=== PATIENT | male | born 1950 | race Caucasian/White ===

== ENCOUNTER 2017-01-07 02:12 | Emergency (ER) | payer MEDICARE ==
[2017-01-07 03:13] LABS: Urine Bacteria 1+ (Absent); Urine Bilirubin Negative (Negative); Urine Glucose Negative (Negative); Urine Nitrite Negative (Negative)
[2017-01-07 03:21] LABS: Add Diff/Slide Review? Slide Review Added; Comments Flag Yes; Hematocrit 39 % (42-52); Hemoglobin 13.1 g/dl (14.0-18.0); Mean Corpuscular HGB Conc 34 g/dl (31-36); Mean Corpuscular Hemoglobin 30 pg (27-31); Mean Corpuscular Volume 90 fL (80-94); Mean Platelet Volume 8 um3 (7.4-10.4); Red Blood Count 4.32 10^6/ul (4.0-5.4); Red Cell Distribution Width 14 % (10.5-15)
[2017-01-07 03:35] LABS: Albumin 3.9 g/dL (3.2-5.2); BUN/Creatinine Ratio 13.5 (8-20); Calcium 9.2 mg/dL (8.6-10.3); EGFR African American 109.3 (>60); Globulin 2.7 g/dL (2-4); Potassium 3.6 mmol/L (3.5-5.0); Total Bilirubin 0.6 mg/dL (0.2-1.0); Total Protein 6.6 g/dL (6.4-8.9)
--- NOTE | 2017-01-07 03:47 | ED ---
Tremaine Barba Thomas, scribed for Manfred Kelly on 01/07/17 at 0237 . GI/ HPI - HPI Summary HPI Summary: The pt is a 66 y/o M presenting to the ED c/o inability void since today at 00: 30. He reports prior episodes of inability to void. He attempted to self- catheterize and only found blood. He had been taught previously how to self- catheterize, although this was the first time that he has attempted. Pt denies any pain in the ED. He denies a Hx of prostate CA, kidney failure. He is not on any blood thinners. He takes Flomax. PMHx: BPH, inguinal hernia. - History of Current Complaint Chief Complaint: EDUrogenitalProblems Time Seen by Provider: 01/07/17 02:30 Stated Complaint: UNABLE TO URINATE//DR SENT Hx Obtained From: Patient Onset/Duration: Started Hours Ago - 00:30 today, Still Present Timing: Constant Pain Intensity: 0 Associated Signs and Symptoms: Positive: Other: - POS: inability to void; NEG: any pain Aggravating Factor(s): Nothing Alleviating Factor(s): Nothing - Allergy/Home Medications Allergies/Adverse Reactions: Allergies Allergy/AdvReac Type Severity Reaction Status Date / Time No Known Allergies Allergy Verified 01/07/17 02:16 PMH/Surg Hx/FS Hx/Imm Hx Previously Healthy: No GI History: Reports: Other GI Disorders - Hx inguinal hernia History: Reports: Hx Benign Prostatic Hyperplasia - Surgical History Surgery Procedure, Year, and Place: HERNIA REPAIR X 2 "30 YRS AGO". BACK SURGERY "40 YRS AGO" Infectious Disease History: No Infectious Disease History: Denies: Traveled Outside the [place] in Last 30 Days - Family History Known Family History: Positive: Other - When asked, the patient reponds "none" - Social History Alcohol Use: None Substance Use Type: Reports: None Smoking Status (MU): Never Smoked Tobacco Review of Systems Negative: Fever Negative: Abdominal Pain Positive: other - POS: inability to void All Other Systems Reviewed And Are Negative: Yes Physical Exam Triage Information Reviewed: Yes Vital Signs On Initial Exam: Initial Vitals Temp Pulse Resp BP Pulse Ox 96.6 F 110 16 139/87 99 01/07/17 02:01/07/17 02:01/07/17 02:01/07/17 02:17 01/07/17 02:17 Vital Signs Reviewed: Yes Appearance: Positive: Well-Appearing, No Pain Distress Skin: Positive: Warm, Skin Color Reflects Adequate Perfusion, Dry Head/Face: Positive: Normal Head/Face Inspection Eyes: Positive: EOMI, MIGUEL ENT: Positive: Normal ENT inspection Neck: Positive: Supple, Nontender Respiratory/Lung Sounds: Positive: Clear to Auscultation, Breath Sounds Present Cardiovascular: Positive: RRR, Pulses are Symmetrical in both Upper and Lower Extremities Abdomen Description: Positive: Nontender, Soft, Distended Bowel Sounds: Positive: Present Musculoskeletal: Positive: Normal, Strength/ROM Intact Neurological: Positive: Normal, Sensory/Motor Intact, Alert, Oriented to Person Place, Time Diagnostics - Vital Signs Vital Signs Temp Pulse Resp BP Pulse Ox 01/07/17 02:17 96.6 F 110 16 139/87 99 - Laboratory Result Diagrams: 01/07/17 03:10 01/07/17 03:10 Lab Statement: Any lab studies that have been ordered have been reviewed, and results considered in the medical decision making process. GIGU Course/Dx - Course Assessment/Plan: The patient presents with urinary retention without abdominal pain. He attempted to self-catheterized. He was catheterized in the ED. He is diagnosed with urinary retention. He will be discharged. - Diagnoses Provider Diagnoses: Urinary retention Discharge - Discharge Plan Condition: Stable Disposition: HOME Patient Education Materials: Urinary Retention in Men (ED) The documentation as recorded by the Tremaine sahu Thomas accurately reflects the service I personally performed and the decisions made by Robin farr Emmanuel.
[2017-01-07 04:00] VITALS: BP 138/86
== END 2017-01-07 04:00 | disposition home or self-care (01) ==
LOC: ED 02:12
DX: R33.9 Retention of urine, unspecified (principal)
CPT/HCPCS: 36415; 80053; 81003; 81015; 85025; 87086; 99282

== ENCOUNTER → 2017-01-07 05:07 | Emergency (ER) | payer MEDICARE ==
--- NOTE | 2017-01-07 05:29 | ED ---
Tremaine Barba Thomas, scribed for Manfred Klely on 01/07/17 at 0522 . GI/ HPI - HPI Summary HPI Summary: The patient is a 66 y/o M who returns to [facility] ED in order to have his Mccabe catheter removed. He was a patient here earlier in the night and diagnosed with urinary retention for which a Mccabe catheter was placed. The patient reports that in the past his Mccabe catheters have been removed shortly after they are placed, and he tells us that he wants his Mccabe catheter removed. He has an appointment with Dr. Perez in the morning at 08:00, which he states that he will attend. - History of Current Complaint Chief Complaint: EDUrogenitalProblems Time Seen by Provider: 01/07/17 05:15 Stated Complaint: CATH ISSUE Hx Obtained From: Patient Onset/Duration: Started Hours Ago - s/p visit to the ED, Still Present Timing: Constant Current Severity: None Pain Intensity: 0 Associated Signs and Symptoms: Positive: Negative Aggravating Factor(s): Nothing Alleviating Factor(s): Nothing - Allergy/Home Medications Allergies/Adverse Reactions: Allergies Allergy/AdvReac Type Severity Reaction Status Date / Time No Known Allergies Allergy Verified 01/07/17 02:16 PMH/Surg Hx/FS Hx/Imm Hx Previously Healthy: No GI History: Reports: Other GI Disorders - Hx inguinal hernia History: Reports: Hx Benign Prostatic Hyperplasia - Surgical History Surgery Procedure, Year, and Place: HERNIA REPAIR X 2 "30 YRS AGO". BACK SURGERY "40 YRS AGO" Infectious Disease History: No Infectious Disease History: Denies: Traveled Outside the [place] in Last 30 Days - Family History Known Family History: Positive: Other - When asked, the patient reponds "none" - Social History Alcohol Use: None Substance Use Type: Reports: None Smoking Status (MU): Never Smoked Tobacco Review of Systems Negative: Fever Genitourinary: Other - POS: desires Mccabe catheter to be removed All Other Systems Reviewed And Are Negative: Yes Physical Exam Triage Information Reviewed: Yes Vital Signs On Initial Exam: Initial Vitals Temp Pulse Resp BP Pulse Ox 98.8 F 102 18 108/80 97 01/07/17 05:12 01/07/17 05:12 01/07/17 05:12 01/07/17 05:12 08/30/17 05:12 Vital Signs Reviewed: Yes Appearance: Positive: Well-Appearing, No Pain Distress Skin: Positive: Warm, Skin Color Reflects Adequate Perfusion, Dry Head/Face: Positive: Normal Head/Face Inspection Eyes: Positive: EOMI, MIGUEL ENT: Positive: Normal ENT inspection Neck: Positive: Supple, Nontender Respiratory/Lung Sounds: Positive: Clear to Auscultation, Breath Sounds Present Cardiovascular: Positive: RRR, Pulses are Symmetrical in both Upper and Lower Extremities Abdomen Description: Positive: Nontender, Soft Male Genital Exam: Positive: other - There is a mccabe catheter Musculoskeletal: Positive: Normal, Strength/ROM Intact Neurological: Positive: Normal, Sensory/Motor Intact, Alert, Oriented to Person Place, Time Diagnostics - Vital Signs Vital Signs Temp Pulse Resp BP Pulse Ox 01/07/17 05:12 98.8 F 102 18 108/80 97 - Laboratory Lab Statement: Any lab studies that have been ordered have been reviewed, and results considered in the medical decision making process. GIGU Course/Dx - Course Assessment/Plan: The patient returns to the ED for removal of the Mccabe Catheter. He wants the catheter to be removed. We removed the catheter. He was diagnosed with Mccabe catheter problems. He has an appointment with Dr. Perez in the AM at 08:00, where he will follow up. - Diagnoses Provider Diagnoses: Mccabe catheter problem Discharge - Discharge Plan Condition: Stable Disposition: HOME Patient Education Materials: Mccabe Catheter Placement and Care (ED) Referrals: Yashira Cardenas MD [Primary Care Provider] - Additional Instructions: Go to your appointment at 08:00 with your urologist. The documentation as recorded by the Tremaine sahu Thomas accurately reflects the service I personally performed and the decisions made by Robin farr Emmanuel.
[2017-01-07 05:45] VITALS: BP 112/76
== END | disposition home or self-care (01) ==
LOC: ED 05:07
DX: Z46.6 Encounter for fitting and adjustment of urinary device (principal)
CPT/HCPCS: 99281

== ENCOUNTER → 2017-01-31 05:11 | Emergency (ER) | payer MEDICARE ==
--- NOTE | 2017-01-31 06:48 | ED ---
Tim Barba Rebecca, scribed for Manfred Kelly on 01/31/17 at 0532 . GI/ HPI - HPI Summary HPI Summary: Pt is a 66 y/o M who presents to ED c/o difficulty urinating since 0100 this morning. 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 Prior similar episodes have occurred in the past so he has been given catheters to resolve the issue at home. In the office, he was okay to place the catheter himself, but the first time but self he could not place it. Was advised to come to the ED next time this issue recurs. Sx aggravated and alleviated by nothing. Denies abdominal pain. - History of Current Complaint Chief Complaint: EDUrogenitalProblems Time Seen by Provider: 01/31/17 05:21 Stated Complaint: UNABLE TO URINATE Hx Obtained From: Patient Onset/Duration: Started Hours Ago, Still Present Current Severity: None Pain Intensity: 0 Location of Pain: None Associated Signs and Symptoms: Positive: Other: - Difficulty urinating. Negative: Nausea, Vomiting, Fever Aggravating Factor(s): Nothing Alleviating Factor(s): Nothing - Allergy/Home Medications Allergies/Adverse Reactions: Allergies Allergy/AdvReac Type Severity Reaction Status Date / Time No Known Allergies Allergy Verified 01/31/17 05:19 PMH/Surg Hx/FS Hx/Imm Hx GI History: Reports: Other GI Disorders - Hx inguinal hernia History: Reports: Hx Benign Prostatic Hyperplasia - Surgical History Surgery Procedure, Year, and Place: HERNIA REPAIR X 2 "30 YRS AGO". BACK SURGERY "40 YRS AGO" Infectious Disease History: No Infectious Disease History: Denies: Traveled Outside the [place] in Last 30 Days - Family History Known Family History: Positive: Other - When asked, the patient reponds "none" - Social History Alcohol Use: None Substance Use Type: Reports: None Smoking Status (MU): Never Smoked Tobacco Review of Systems Negative: Abdominal Pain Positive: other - Difficulty urinating All Other Systems Reviewed And Are Negative: Yes Physical Exam - Summary Physical Exam Summary: Appearance: Well appearing, no pain distress Skin: warm, dry, reflects adequate perfusion Head/face: normal Eyes: EOMI, MIGUEL ENT: normal Neck: supple, nontender Respiratory: CTA, breath sounds present Cardiovascular: RRR, pulses symmetrical Abdomen: nontender, soft, distended bladder Bowel: present Musculoskeletal: normal, strength/ROM intact Neuro: normal, sensory motor intact, A&Ox3 Triage Information Reviewed: Yes Vital Signs On Initial Exam: Initial Vitals Temp Pulse Resp BP Pulse Ox 97.6 F 125 20 116/94 98 01/31/17 05:15 01/31/17 05:15 01/31/17 05:15 01/31/17 05:15 01/31/17 05:15 Vital Signs Reviewed: Yes Diagnostics - Vital Signs Vital Signs Temp Pulse Resp BP Pulse Ox 01/31/17 05:15 97.6 F 125 20 116/94 98 - Laboratory Lab Statement: Any lab studies that have been ordered have been reviewed, and results considered in the medical decision making process. GIGU Course/Dx - Course Assessment/Plan: Pt is a 66 y/o M who presents to ED c/o difficulty urinating since 0100 this morning. 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 Prior similar episodes have occurred in the past so he has been given catheters to resolve the issue at home. In the office, he was okay to place the catheter himself, but the first time but self he could not place it. Was advised to come to the ED next time this issue recurs. Denies abdominal pain. Catheter placement attempted but was unsuccessful. Pt will be signed out to Dr. Hernandez, pending disposition, awaiting consultation. - Diagnoses Provider Diagnoses: Urinary retention, Hematuria Discharge - Discharge Plan Condition: Stable Disposition: OTHER Discharge Disposition Comment: Pt will be signed out to Dr. Hernandez, pending dispo , awaiting consult Referrals: Yashira Cardenas MD [Primary Care Provider] - The documentation as recorded by the Tim sahu Rebecca accurately reflects the service I personally performed and the decisions made by , Manfred Kelly.
[2017-01-31 06:55] LABS: Hematocrit 43 % (42-52); Hemoglobin 14.5 g/dl (14.0-18.0); Mean Corpuscular HGB Conc 33 g/dl (31-36); Mean Corpuscular Hemoglobin 30 pg (27-31); Mean Corpuscular Volume 91 fL (80-94); Mean Platelet Volume 9 um3 (7.4-10.4); Red Blood Count 4.77 10^6/ul (4.0-5.4); Red Cell Distribution Width 14 % (10.5-15); White Blood Count 5.8 10^3/ul (3.5-10.8)
[2017-01-31 07:05] LABS: Add Diff/Slide Review? Slide Review Added; Comments Flag Yes
[2017-01-31 07:05] LABS: Albumin 4.6 g/dL (3.2-5.2); BUN/Creatinine Ratio 11.5 (8-20); Calcium 9.5 mg/dL (8.6-10.3); EGFR African American 100.2 (>60); EGFR Non-African American 77.9 (>60); Potassium 3.5 mmol/L (3.5-5.0); Total Bilirubin 0.8 mg/dL (0.2-1.0); Total Protein 7.6 g/dL (6.4-8.9)
[2017-01-31 09:20] VITALS: BP 107/70
--- NOTE | 2017-01-31 14:23 | CONS ---
CC: Dr. Yashira Cardenas.* CONSULTATION NOTE: DATE OF CONSULT: 01/31/17. DIAGNOSES: Benign prostatic hyperplasia, urinary retention. PROCEDURE: Complex urethral catheterization, 16 Peruvian coude catheter. HISTORY OF PRESENT ILLNESS: Mr. Mcgarry is a 66-year-old white male who has been followed in our office by Dr. Perez because of bladder outlet obstruction, large prostate and recurrent episodes of urinary retention. He was previously worked up in the office including a cystoscopy which showed a large obstructing prostate. Patient has been on tamsulosin. He was offered to go on finasteride, but he declined. Because of the episodes of retention, he was taught to perform self- catheterization as needed if the retention recurs while planning for definitive treatment of his condition. Patient reports that about a month ago he was unsuccessful at self- catheterization and he had to be seen in the office urgently where he underwent flexible cystoscopy and the placement of a urethral catheter over a guidewire. The Juarez catheter was removed. He reported being able to void adequately until last night when he went into urinary retention. He presented to the emergency room at around 5 o'clock this morning. Attempts at placement of a urethral catheter including a coude by the nursing staff was not successful and urology consultation was requested urgently. The patient denies any fever or chills. He noticed some urethral bleeding but that occurred after the attempted catheterization. His lab work was normal and his serum creatinine was normal. PHYSICAL EXAM: On physical exam, he is a healthy looking white male who seems uncomfortable. He had a distended bladder. External genitalia were normal. Rectal examination was not performed. DESCRIPTION OF PROCEDURE: After proper prepping and draping, a 16 coude catheter was passed inside the urethra. There was some resistance at the level of the posterior urethra and after several attempts, the coude catheter was successfully introduced inside the bladder draining 400 cc of clear urine. Judging from the position of the Juarez, it confirms that the patient has a large prostate. The Juarez catheter was attached to a leg bag. ASSESSMENT/PLAN: The plan is to discharge the patient home on Juarez catheter drainage. Because of history of bladder spasms, he will be started on oxybutynin 5 mg every 6 hours as needed. He will calling the office early next week for followup and will decide on the definitive treatment of his urinary retention. [id number]/[facility] #: [id number] ERI[facility] COUNTY MEDICAL CENTERIgnacio
--- NOTE | 2017-02-01 16:14 | ED ---
Zehra Barba Edward, scribed for Harris Hernandez MD on 01/31/17 at 0731 . Progress - Progress Note Progress Note: Pt signed out from Dr. Kelly at shift change. Last time the pt was able to urinate was last night. Pending Dr. Harley consult. Spoke with Dr. Harley at 07::45 who will come to the ED to see the pt. Course/Dx - Course Course Of Treatment: Pt is stable and will be discharged home. Assessment and plan - Signed out by Dr. Kelly. Pt is requesting a Dr. Harley consult. Dr. Harley came and placed a mccabe catheter for pt. After the pt is feeling better. The pt was able to produce approximately 1200 ccs of urine. Pts symptoms have improved. Dr. Harley recommended the pt be d/c with prescription of oxybutynin 5 mg every 6 hrs. Pt will be d/c home with a f/u with Dr. Harley in the next couple of days. The pt is hemodynamically stabe and A&Ox3. - Diagnoses Provider Diagnoses: Urinary retention, Hematuria The documentation as recorded by the pepeibZehra nunez Edward accurately reflects the service I personally performed and the decisions made by , Harris Hernandez MD.
== END ==
LOC: ED 05:11
DX: R33.9 Retention of urine, unspecified (principal); R31.9 Hematuria, unspecified; N40.0 Benign prostatic hyperplasia without lower urinary tract symptoms
CPT/HCPCS: 36415; 51702; 80053; 85025; 85610; 85730; 99282